=== PATIENT | male | born 1970 | race Two or more races ===

== ENCOUNTER 2020-06-14 10:34 | Emergency (ER) | payer OTHER ==
[~2020-06-14] VITALS: Ht 175.3 cm; Wt 109.0 kg
--- NOTE | 2020-06-14 12:01 | RAD ---
Examination: CT HEAD/BRAIN WO History: Reason: fall headache / Comparison/Correlation: None Findings: Axial images of the head were obtained without contrast. Ventricles are normal size. No intracranial hemorrhage, midline shift, or mass effect. Orbits are unr emarkable. Bony structures are unremarkable. Partial opacification of ethmoid air cells noted. Lack o f development of the right frontal sinus noted. Bony structures are intact. Impression: No suspicious process. Electronically signed by: Joe Oswald MD (06/14/2020 11:59 AM) [id number]
[2020-06-14] MEDS ORDERED: ONDA4TAB12 PO (12:33)
--- NOTE | 2020-06-14 12:33 | PHYS DOC ---
Past Medical History Past Medical History: No Pertinent History (JOBY BANKS APRN) Past Surgical History: No Surgical History (JOBY BANKS APRN) Smoking Status: Never Smoker Alcohol Use: None (JOBY BANKS APRN) General Adult EDM: Chief Complaint: HEAD INJURY/TRAUMA HPI: HPI: Patient is a 50 year old male with no significant medical history who presents to the ED today complaining of slight intermittent generalized headache that began on June 02, 2020 after he fell down and hit his head. Patient states he was walking down the steps, he missed the last step and fell down hitting his head on a refrigerator. Patient denies any loss of consciousness. Denies any neck pain. Denies any mid or low back pain. He states is noted intermittent headaches as well as slight nausea for the last 7 days. Denies any vomiting. He states he was seen at the local clinic and was sent to the ED for his CAT scan. Denies being on any anticoagulants. Patient is Lao-speaking and interpretation was provided by family (JOBY BANKS APRN) Review of Systems: Review of Systems: Constitutional: Denies fever or chills. [] Eyes: Denies change in visual acuity. [] HENT: Denies nasal congestion or sore throat. [] Respiratory: Denies cough or shortness of breath. [] Cardiovascular: Denies chest pain or edema. [] GI: Reports nausea. Denies abdominal pain, vomiting, bloody stools or diarrhea. [] : Denies dysuria. [] Musculoskeletal: Denies back pain or joint pain. [] Integument: Denies rash. [] Neurologic: Reports headache, denies focal weakness or sensory changes. [] Psychiatric: Denies depression or anxiety. [] (JOBY BANKS APRN) Heart Score: Risk Factors: Risk Factors: DM, Current or recent (<one month) smoker, HTN, HLP, family hi story of CAD, obesity. Risk Scores: Score 0 - 3: 2.5% MACE over next 6 weeks - Discharge Home Score 4 - 6: 20.3% MACE over next 6 weeks - Admit for Clinical Observation Score 7 - 10: 72.7% MACE over next 6 weeks - Early Invasive Strategies (JOBY BANKS APRN) Allergies: Allergies: Allergies Coded Allergies Type Severity Reaction Last Updated Verified No Known Drug Allergies 06/14/20 No (JOBY BAKNS QUILLER OPERATOR) Physical Exam: PE: Constitutional: Well developed, well nourished, no acute distress, non-toxic appearance. [] HENT: Normocephalic, atraumatic, bilateral external ears normal, oropharynx moist, no oral exudates, nose normal. [] Eyes: PERRLA, EOMI, conjunctiva normal, no discharge. [] Neck: Normal range of motion, no tenderness, supple, no stridor. [] Cardiovascular:Heart rate regular rhythm, no murmur [] Lungs & Thorax: Bilateral breath sounds clear to auscultation [] Abdomen: Bowel sounds normal, soft, no tenderness, no masses, no pulsatile masses. [] Skin: Warm, dry, no erythema, no rash. [] Back: No tenderness, no CVA tenderness. [] Extremities: No tenderness, no cyanosis, no clubbing, ROM intact, no edema. [] Neurologic: Alert and oriented X 3, normal motor function, normal sensory function, no focal deficits noted. Cranial nerves II through XII intact Psychologic: Affect normal, judgement normal, mood normal. [] (JOBY BANKS QUILLER OPERATOR) Current Patient Data: Vital Signs: Vital Signs Date Time Temp Pulse Resp B/P (MAP) Pulse Ox O2 Delivery O2 Flow Rate FiO2 06/14/20 10:48 98.7 68 18 152/84 (106) 98 Room Air 98.7 (JOBY BANSK APRN) EKG: EKG: [] (JOBY BANKS APRN) Radiology/Procedures: Radiology/Procedures: []PROCEDURE: CT HEAD WO CONTRAST Examination: CT HEAD/BRAIN WO History: Reason: fall headache / Comparison/Correlation: None Findings: Axial images of the head were obtained without contrast. Ventricles are normal size. No intracranial hemorrhage, midline shift, or mass effect. Orbits are unremarkable. Bony structures are unremarkable. Partial opacification of ethmoid air cells noted. Lack of development of the right frontal sinus noted. Bony structures are intact. Impression: No suspicious process. Electronically signed by: Joe Bolton MD (06/14/2020 11:59 AM) [id number] DICTATED and SIGNED BY: JOE BOLTON MD DATE: 06/14/20 [id number] (JOBY BANKS APRN) Course & Med Decision Making: Course & Med Decision Making Pertinent Labs and Imaging studies reviewed. (See chart for details) This is a 50-year-old male patient presenting to the ED today with a slight head ache and nausea, patient fell on June 02, 2020 and hit his head on the ground, no loss of consciousness. CT of the head is negative for any acute findings. Discharge to home. Follow-up with PCP in 1 to 2 weeks. Provided return precautions. (JOBY BANKS APRN) Dragon Disclaimer: Dragon Disclaimer: This electronic medical record was generated, in whole or in part, using a voice recognition dictation system. (JOBY BANKS APRN) Departure Departure Impression: Primary Impression: Closed head injury with concussion Qualified Codes: S06.0X0A - Concussion without loss of consciousness, initial encounter Additional Impression: Fall down steps Qualified Codes: W10.8XXA - Fall (on) (from) other stairs and steps, initial encounter Disposition: 01 DC HOME SELF CARE/HOMELESS Condition: STABLE Referrals: NO PCP (PCP) follow up with your doctor in 1-2 weeks Patient Instructions: Concussion and Brain Injury Additional Instructions: You were evaluated in the emergency room for head injury with concussion symptoms. Your CT of the head is negative for any acute findings. You can take Zofran as needed for nausea or vomiting. Please follow-up with your own doctor in the next 1 to 2 weeks. Do not do any strenuous activities including contact sports until your symptoms are completely gone. Come back to the ED at any point you have uncontrolled pain, confusion, excessive sleepiness, uncontrolled vomiting, or any other concerning symptoms. Scripts Ondansetron (ONDANSETRON ODT) 4 Mg Tab.rapdis 1 TAB PO PRN Q6-8HRS, #16 TAB Prov: JOCELYNJOBY MICHAEL 06/14/20 Attending Signature Attending Signature I have reviewed the PA/BOAT DETAILER's note and plan of care. I was available for consultation as needed during the patient's visit in the emergency department. I agree with the clinical impression, plan, and disposition. (HENRIETTA REBOLLEDO DO) JOBY BANKS APRN Jun 14, 2020 12:33 HENRIETTA REBOLLEDO DO Jun 15, 2020 06:56
[2020-06-14 12:51] VITALS: BP 155/97
== END 2020-06-14 12:55 | disposition home or self-care (01) ==
LOC: ER 10:34
DX: S06.0X0A Concussion without loss of consciousness, initial encounter (principal); R11.0 Nausea; W10.8XXA Fall (on) (from) other stairs and steps, initial encounter; Y93.89 Activity, other specified; Y92.89 Other specified places as the place of occurrence of the external cause; Y99.8 Other external cause status
CPT/HCPCS: 70450; 99284